=== PATIENT | female | born 1975 | race Caucasian/White ===

== ENCOUNTER 2017-01-30 19:26 | Emergency (ER) | payer OTHER ==
[~2017-01-30] VITALS: Ht 175.3 cm; Wt 133.0 kg
[~2017-01-30 19:26] MED LIST: ALPR1TAB2 PO; BUSP5TAB2 PO; CITA10TA4 PO; OXYC-302 PO; SUMA25TA3 PO; WARF5TAB PO
[2017-01-30 19:27] VITALS: BP 131/87
[2017-01-30] MEDS ORDERED: LIDOCAINE 1%, 20ML ONE (20:11)
[2017-01-30] MEDS ORDERED: DIPH,PERTUSS(ACELL),TET VAC/PF 0.5 ML IM-VACC ONE ×2 (20:11→20:30)
[2017-01-30] MEDS ORDERED: LIDOCAINE 1%, 20ML SQ ONE (20:30)
== END 2017-01-30 20:54 | disposition home or self-care (01) ==
LOC: ED 20:45
DX: S61.217A Laceration without foreign body of left little finger without damage to nail, initial encounter (principal); W26.8XXA Contact with other sharp object(s), not elsewhere classified, initial encounter; Y93.89 Activity, other specified; Y92.009 Unspecified place in unspecified non-institutional (private) residence as the place of occurrence of the external cause; Y99.9 Unspecified external cause status
CPT/HCPCS: 12001; 90471; 90715

== ENCOUNTER → 2017-03-22 | Outpatient (CLI) | payer OTHER ==
[~2017-03-22] MED LIST changes: +OXYC-307 PO
== END | disposition home or self-care (01) ==
LOC: STAR 09:52
PROVIDERS: ATTEND Obstetrics & Gynecology
DX: Z02.9 Encounter for administrative examinations, unspecified (principal)

== ENCOUNTER 2017-03-29 06:05 | Day surgery (SDC) | payer OTHER ==
[~2017-03-29] VITALS: Ht 175.3 cm; Wt 129.7 kg
[2017-03-29] MEDS ORDERED: EPINEPHRINE 1 MG/ML, 1ML ONE (06:15)
[2017-03-29] MEDS ORDERED: BUPIVACAINE/PF 0.25% ONE ×2 (06:15→07:33)
[2017-03-29] MEDS ORDERED: FLUORESCEIN SODIUM 500 MG/5 ML ONE (06:15)
[2017-03-29 07:04] VITALS: BP 137/82
[2017-03-29] MEDS ORDERED: LACTATED RINGERS 1,000 ML IV SCH (07:04)
[2017-03-29] MEDS ORDERED: MIDAZOLAM 1 MG/ML, 2ML ONE ×2 (07:36)
[2017-03-29] MEDS ORDERED: SCOPOLAMINE PATCH, 1.5MG PATCH.TD72 TD ONE ×2 (07:36→07:46)
[2017-03-29] MEDS ORDERED: FENTANYL PF 100 MCG/2ML ONE ×3 (07:36→10:54)
[2017-03-29 07:44] LABS: HCG UR OBC PASS
[2017-03-29] MEDS ORDERED: HYDROmorphone 2 MG/ML, 1ML ONE (07:53)
[2017-03-29] MEDS ORDERED: KETAMINE 10 MG/ML, 20ML ONE (07:54)
[2017-03-29] MEDS ORDERED: KETOROLAC 30 MG/1 ML ONE (07:57)
[2017-03-29] MEDS ORDERED: DEXAMETHASONE 4 MG/ML, 5ML ONE (07:57)
[2017-03-29] MEDS ORDERED: PROPOFOL 10 MG/ML, 20ML ONE (07:57)
[2017-03-29] MEDS ORDERED: LABETALOL 5MG/ML 40ML VIAL ONE (07:57)
[2017-03-29] MEDS ORDERED: CEFOTETAN 2 GM ONE (07:57)
[2017-03-29] MEDS ORDERED: ONDANSETRON 2MG/ML, 2ML ONE ×2 (07:57→16:25)
[2017-03-29] MEDS ORDERED: BUPIVACAINE/PF-EPI 0.25% 1:200K IM ONE (08:25)
[2017-03-29] MEDS ORDERED: HYDROmorphone 1 MG/ML, 1ML IV PRN (09:00)
[2017-03-29] MEDS ORDERED: LORazepam 2 MG/ML, 1ML IVPush PRN (09:00)
[2017-03-29] MEDS ORDERED: OXYcodone 5 MG/5 ML ORAL.SOL UDC PO PRN (09:00)
[2017-03-29] MEDS ORDERED: PROMETHAZINE 25 MG/ML, 1ML IV PRN (09:00)
[2017-03-29] MEDS ORDERED: ACETAMINOPHEN 325 MG TABLET PO PRN (09:00)
[2017-03-29] MEDS ORDERED: ONDANSETRON 2MG/ML, 2ML IVPush PRN ×2 (09:00→16:30)
[2017-03-29] MEDS ORDERED: HYDROmorphone 1 MG/ML, 1ML ONE ×2 (09:32→11:41)
[2017-03-29] MEDS ORDERED: ACETAMINOPHEN 650 MG/20.3 ML UDC ONE (10:55)
[2017-03-29] MEDS ORDERED: MEPERIDINE/PF 25MG/0.5ML ONE (11:06)
[2017-03-29] MEDS: MEPERIDINE/PF 25MG/0.5ML IVPush PRN ×2 (11:07→11:20)
[2017-03-29] MEDS ORDERED: OXYcodone 5 MG/5 ML ORAL.SOL UDC ONE (11:41)
[2017-03-29 14:31] LABS: HEMATOCRIT 33.7 % (34.6-47.8); HEMOGLOBIN 10.9 g/dL (11.7-16.4)
[2017-03-29] MEDS ORDERED: OXYcodone/APAP 5/325MG TABLET ONE (15:34)
[2017-03-29] MEDS ORDERED: ENOXAPARIN 40 MG/0.4 ML ONE (15:43)
[2017-03-29] MEDS ORDERED: ENOXAPARIN 40 MG/0.4 ML SQ SCH (16:00)
[2017-03-29] MEDS ORDERED: OXYcodone/APAP 5/325MG TABLET PO PRN (16:00)
== END 2017-03-29 16:55 ==
LOC: OUT 06:05 → EDSTATUS 08:00 → OUT 16:55
PROVIDERS: ATTEND Obstetrics & Gynecology
DX: N93.8 Other specified abnormal uterine and vaginal bleeding (principal); N85.2 Hypertrophy of uterus; F32.9 Major depressive disorder, single episode, unspecified; G43.909 Migraine, unspecified, not intractable, without status migrainosus; Z86.39 Personal history of other endocrine, nutritional and metabolic disease; Z98.890 Other specified postprocedural states; Z88.0 Allergy status to penicillin; E66.01 Morbid (severe) obesity due to excess calories; Z68.41 Body mass index [BMI] 40.0-44.9, adult
CPT/HCPCS: 36415; 58550; 81025; 85014; 85018; 88307; J0171; J1100; J1170; J1650; J1885; J2175; J2250; J2405; J2704; J3010; J3490; J7120; S0074

== ENCOUNTER 2017-05-16 16:24 | Emergency (ER) | payer OTHER ==
[~2017-05-16] VITALS: Ht 175.3 cm; Wt 127.9 kg
[2017-05-16] MEDS ORDERED: SODIUM CHLORIDE 0.9% 1,000ML IVBOLUS ONE (17:00)
[2017-05-16] MEDS ORDERED: SODIUM CHLORIDE FLUSH 10ML SYR IVF ONE (17:00)
[2017-05-16 17:06] LABS: HEMATOCRIT 37.6 % (34.6-47.8); HEMOGLOBIN 12.2 g/dL (11.7-16.4); WHITE BLOOD COUNT 10.2 x10^3/uL (3.4-10)
[2017-05-16 17:18] LABS: BLOOD UREA NITROGEN 9 mg/dL (7-18)
[2017-05-16] MEDS ORDERED: ONDANSETRON ODT 4 MG PO ONE (19:30)
[2017-05-16] MEDS ORDERED: KETOROLAC 30 MG/1 ML IM ONE (19:30)
[2017-05-16] MEDS ORDERED: HYDROmorphone 1 MG/ML, 1ML IM ONE (19:30)
[2017-05-16 21:11] VITALS: BP 129/69
[2017-05-16] MEDS ORDERED: ONDANSETRON ODT 4 MG ONE (21:27)
[2017-05-16] MEDS ORDERED: HYDROmorphone 1 MG/ML, 1ML ONE (21:28)
[2017-05-16] MEDS ORDERED: KETOROLAC 30 MG/1 ML ONE (21:28)
[2017-05-16] MEDS ORDERED: CEFTRIAXONE 1,000 MG IM ONE (21:30)
[2017-05-16] MEDS ORDERED: CEFTRIAXONE 1,000 MG ONE (21:30)
== END 2017-05-16 22:18 | disposition home or self-care (01) ==
LOC: ED 20:48
DX: N12 Tubulo-interstitial nephritis, not specified as acute or chronic (principal); N39.0 Urinary tract infection, site not specified; G89.29 Other chronic pain; Z88.0 Allergy status to penicillin; Z90.710 Acquired absence of both cervix and uterus
CPT/HCPCS: 36415; 76770; 80048; 81001; 82040; 84703; 85025; 87086; 96360; 96361; 96372; 99285; J0696; J1170; J1885; J7030; Q0162

== ENCOUNTER 2017-06-13 19:01 | Emergency (ER) | payer OTHER ==
[~2017-06-13] VITALS: Ht 175.3 cm; Wt 128.7 kg
[2017-06-13] MEDS ORDERED: MORPHINE SULFATE 4 MG/ML, 1ML IVPush PRN (19:30)
[2017-06-13] MEDS ORDERED: SODIUM CHLORIDE 0.9% 1,000ML IVBOLUS ONE (19:30)
[2017-06-13] MEDS ORDERED: SODIUM CHLORIDE FLUSH 10ML SYR IVF ONE (19:30)
[2017-06-13] MEDS ORDERED: ONDANSETRON 2MG/ML, 2ML IVPush ONE (19:30)
[2017-06-13 19:40] LABS: HEMATOCRIT 36.2 % (34.6-47.8); HEMOGLOBIN 11.8 g/dL (11.7-16.4); WHITE BLOOD COUNT 14.8 x10^3/uL (3.4-10)
[2017-06-13 19:51] LABS: ASPARTATE AMINO TRANSFERASE 10 U/L (15-37); BLOOD UREA NITROGEN 15 mg/dL (7-18)
[2017-06-13] MEDS ORDERED: HYDROmorphone 1 MG/ML, 1ML ONE (22:57)
[2017-06-13] MEDS ORDERED: ONDANSETRON 2MG/ML, 2ML ONE (22:57)
[2017-06-13] MEDS: HYDROmorphone 1 MG/ML, 1ML IVPush PRN (22:59)
[2017-06-13] MEDS ORDERED: OMNIPAQUE 350 MG/ML, 100ML BOTTLE ONE (23:27)
[2017-06-14] MEDS ORDERED: HYDROmorphone 1 MG/ML, 1ML ONE (00:29)
[2017-06-14] MEDS: HYDROmorphone 1 MG/ML, 1ML IVPush PRN (00:33)
[2017-06-14 01:14] VITALS: BP 114/65
== END 2017-06-14 01:20 | disposition home or self-care (01) ==
LOC: ED 22:50
DX: N83.201 Unspecified ovarian cyst, right side (principal); D72.829 Elevated white blood cell count, unspecified; Z90.710 Acquired absence of both cervix and uterus
CPT/HCPCS: 36415; 74177; 76830; 80053; 81001; 83690; 85025; 87086; 96361; 96374; 96375; 96376; 99285; J1170; J2405; J7030; Q9967

== ENCOUNTER 2017-06-14 14:03 | Emergency (ER) | payer OTHER ==
[~2017-06-14] VITALS: Ht 175.3 cm; Wt 127.0 kg
[2017-06-14 14:15] VITALS: BP 125/85
[2017-06-14 15:28] LABS: HEMATOCRIT 35.7 % (34.6-47.8); HEMOGLOBIN 11.5 g/dL (11.7-16.4); WHITE BLOOD COUNT 11.2 x10^3/uL (3.4-10)
[2017-06-14 15:37] LABS: BLOOD UREA NITROGEN 10 mg/dL (7-18)
== END 2017-06-14 17:40 | disposition home or self-care (01) ==
LOC: ED 16:21
DX: N30.00 Acute cystitis without hematuria (principal); Z90.710 Acquired absence of both cervix and uterus
CPT/HCPCS: 36415; 80048; 81001; 82040; 85025; 87086; 99284

== ENCOUNTER 2017-06-28 13:43 | Emergency (ER) | payer OTHER ==
[~2017-06-28] VITALS: Ht 175.3 cm; Wt 130.0 kg
[2017-06-28] MEDS ORDERED: PHENAZOPYRIDINE 200 MG TABLET ONE (14:21)
[2017-06-28] MEDS ORDERED: PHENAZOPYRIDINE 200 MG TABLET PO ONE (14:30)
[2017-06-28 14:54] LABS: HEMOGLOBIN 11.6 g/dL (11.7-16.4); WHITE BLOOD COUNT 9.8 x10^3/uL (3.4-10)
[2017-06-28 15:06] LABS: ASPARTATE AMINO TRANSFERASE 4 U/L (15-37); BLOOD UREA NITROGEN 11 mg/dL (7-18)
[2017-06-28] MEDS ORDERED: HYDROcodone/APAP 5/325 TABLET PO ONE (16:30)
[2017-06-28] MEDS ORDERED: HYDROcodone/APAP 5/325 TABLET ONE (16:45)
[2017-06-28 17:25] VITALS: BP 123/74
== END 2017-06-28 17:28 | disposition home or self-care (01) ==
LOC: ED 14:50
DX: R35.0 Frequency of micturition (principal); R30.0 Dysuria; R39.15 Urgency of urination; M54.5 Low back pain; F32.9 Major depressive disorder, single episode, unspecified; F41.9 Anxiety disorder, unspecified; E66.9 Obesity, unspecified; G89.29 Other chronic pain
CPT/HCPCS: 36415; 80053; 81003; 85025; 87086; 99284

== ENCOUNTER 2017-11-19 20:23 | Emergency (ER) | payer OTHER ==
[~2017-11-19] VITALS: Ht 175.3 cm; Wt 130.0 kg
[2017-11-19 20:55] LABS: BASOPHILS # (AUTO) 0.12 x10^3/uL (0-0.1); BASOPHILS % (AUTO) 1 % (0-1); EOSINOPHILS # (AUTO) 0.24 x10^3/uL (0-0.4); EOSINOPHILS % (AUTO) 2 % (1-7); LYMPHOCYTES # (AUTO) 2.95 x10^3/uL (1-3.4); LYMPHOCYTES % (AUTO) 26 % (22-44); MD NO; MEAN CORPUSCULAR HEMOGLOBIN 24.7 pg (27.0-34.8); MEAN CORPUSCULAR HGB CONC 32.1 g/dL (32.4-35.8); MEAN CORPUSCULAR VOLUME 77.1 fL (80-100); MEAN PLATELET VOLUME 7.4 fL (7.4-10.4); MONOCYTES # (AUTO) 0.53 x10^3/uL (0.2-0.8); MONOCYTES % (AUTO) 5 % (2-9); NEUTROPHILS # (AUTO) 7.44 x10^3/uL (1.8-6.8); NEUTROPHILS % (AUTO) 66 % (42-75); PLATELET COUNT 491 x10^3/uL (130-400); RED BLOOD COUNT 4.71 x10^6/uL (3.82-5.3); RED CELL DISTRIBUTION WIDTH 16.4 % (9.6-15.2)
[2017-11-19] MEDS ORDERED: ONDANSETRON ODT 4 MG PO ONE (21:00)
[2017-11-19] MEDS ORDERED: SODIUM CHLORIDE FLUSH 10ML SYR IVF ONE (21:00)
[2017-11-19] MEDS ORDERED: MORPHINE SULFATE 4 MG/ML, 1ML IVPush PRN (21:00)
[2017-11-19 21:01] LABS: CULTURE INDICATED? YES; MICROSCOPIC INDICATED
[2017-11-19] MEDS ORDERED: ONDANSETRON ODT 4 MG ONE (21:01)
[2017-11-19] MEDS ORDERED: MORPHINE SULFATE 4 MG/ML, 1ML ONE (21:01)
[2017-11-19 21:06] LABS: ALANINE AMINOTRANSFERASE 15 U/L (12-78); ALBUMIN 3.4 g/dL (3.4-5.0); ANION GAP 6 mmol/L (5-15); CALCIUM 8.4 mg/dL (8.5-10.1); CHLORIDE 108 mmol/L (98-107); CREATININE 0.57 mg/dL (0.55-1.02)
[2017-11-19 21:41] LABS: ALKALINE PHOSPHATASE 60 U/L (45-117); BILIRUBIN,TOTAL 0.2 mg/dL (0.2-1.0); TOTAL PROTEIN 7.6 g/dL (6.4-8.2)
[2017-11-19 22:11] LABS: MICROSCOPIC AUTO
[2017-11-19] MEDS ORDERED: NITROFURANTOIN (MACROBID) 100 MG CAPSULE ONE (23:25)
[2017-11-19] MEDS ORDERED: KETOROLAC 30 MG/1 ML ONE (23:25)
[2017-11-19 23:29] VITALS: BP 128/75
[2017-11-19] MEDS ORDERED: KETOROLAC 30 MG/1 ML IVPush ONE (23:30)
[2017-11-19] MEDS ORDERED: NITROFURANTOIN (MACROBID) 100 MG CAPSULE PO ONE (23:30)
== END 2017-11-19 23:56 | disposition home or self-care (01) ==
LOC: ED 21:51
DX: R31.9 Hematuria, unspecified (principal); R10.9 Unspecified abdominal pain; E07.9 Disorder of thyroid, unspecified
CPT/HCPCS: 36415; 74018; 74176; 76770; 80053; 81001; 85025; 87077; 87086; 87186; 96374; 96375; 99285; J1885; Q0162

== ENCOUNTER 2018-02-11 11:57 | Emergency (ER) | payer OTHER ==
[~2018-02-11] VITALS: Ht 175.3 cm; Wt 132.8 kg
[2018-02-11 12:01] VITALS: BP 130/82
[2018-02-11] MEDS ORDERED: SODIUM CHLORIDE FLUSH 10ML SYR IVF ONE (13:00)
[2018-02-11] MEDS ORDERED: MORPHINE SULFATE 4 MG/ML, 1ML ONE ×2 (13:25→15:26)
[2018-02-11] MEDS: MORPHINE SULFATE 4 MG/ML, 1ML IVPush PRN ×2 (13:29→15:30)
[2018-02-11 13:39] LABS: BASOPHILS # (AUTO) 0.04 x10^3/uL (0-0.1); BASOPHILS % (AUTO) 1 % (0-1); EOSINOPHILS # (AUTO) 0.16 x10^3/uL (0-0.4); EOSINOPHILS % (AUTO) 2 % (1-7); LYMPHOCYTES # (AUTO) 2.43 x10^3/uL (1-3.4); LYMPHOCYTES % (AUTO) 27 % (22-44); MD NO; MEAN CORPUSCULAR HEMOGLOBIN 24.6 pg (27.0-34.8); MEAN CORPUSCULAR HGB CONC 32.1 g/dL (32.4-35.8); MEAN CORPUSCULAR VOLUME 76.6 fL (80-100); MEAN PLATELET VOLUME 7.3 fL (7.4-10.4); MONOCYTES # (AUTO) 0.31 x10^3/uL (0.2-0.8); MONOCYTES % (AUTO) 4 % (2-9); NEUTROPHILS % (AUTO) 68 % (42-75); PLATELET COUNT 469 x10^3/uL (130-400); RED BLOOD COUNT 4.93 x10^6/uL (3.82-5.3); RED CELL DISTRIBUTION WIDTH 16.1 % (9.6-15.2)
[2018-02-11 13:43] LABS: ALBUMIN 3.2 g/dL (3.4-5.0); ANION GAP 4 mmol/L (5-15); CALCIUM 8.7 mg/dL (8.5-10.1); CHLORIDE 104 mmol/L (98-107); CREATININE 0.55 mg/dL (0.55-1.02)
[2018-02-11] MEDS ORDERED: OMNIPAQUE 350 MG/ML, 100ML BOTTLE ONE (14:52)
== END 2018-02-11 16:26 | disposition home or self-care (01) ==
LOC: ED 14:19
DX: R10.31 Right lower quadrant pain (principal); E07.9 Disorder of thyroid, unspecified; F32.9 Major depressive disorder, single episode, unspecified; Z90.710 Acquired absence of both cervix and uterus
CPT/HCPCS: 36415; 74177; 80048; 82040; 83605; 85025; 96374; 96376; 99285; Q9967

== ENCOUNTER → 2018-02-21 | Outpatient (CLI) | payer OTHER ==
[~2018-02-21] MED LIST changes: +BUSP10TA PO; +DEXAMETHASONE 4 MG/ML, 1ML ONE; +FENTANYL PF 250 MCG/5ML ONE; +LIDOCAINE GEL 2%, 5ML ONE; +MIDAZOLAM 1 MG/ML, 2ML ONE; +MULT-516 PO; +ONDANSETRON 2MG/ML, 2ML ONE; +PROPOFOL 10 MG/ML, 20ML ONE; +ROCURONIUM 10MG/ML,5ML ONE; +SUCCINYLCHOLINE 20 MG/ML, 10ML ONE
== END | disposition home or self-care (01) ==
LOC: STAR 10:20
PROVIDERS: ATTEND Obstetrics & Gynecology
DX: Z02.9 Encounter for administrative examinations, unspecified (principal)

== ENCOUNTER 2018-02-27 12:28 | Day surgery (SDC) | payer OTHER ==
[~2018-02-27] VITALS: Ht 175.3 cm; Wt 133.5 kg
[~2018-02-27 12:28] MED LIST changes: -DEXAMETHASONE 4 MG/ML, 1ML ONE; -FENTANYL PF 250 MCG/5ML ONE; -LIDOCAINE GEL 2%, 5ML ONE; -MIDAZOLAM 1 MG/ML, 2ML ONE; -ONDANSETRON 2MG/ML, 2ML ONE; -PROPOFOL 10 MG/ML, 20ML ONE; -ROCURONIUM 10MG/ML,5ML ONE; -SUCCINYLCHOLINE 20 MG/ML, 10ML ONE
[2018-02-27] MEDS ORDERED: LACTATED RINGERS 1,000 ML IV SCH ×2 (13:53→14:05)
[2018-02-27 14:09] VITALS: BP 143/100
[2018-02-27] MEDS ORDERED: OXYTOCIN 10 UNITS/ML, 1ML ONE (14:42)
[2018-02-27] MEDS ORDERED: BUPIVACAINE 0.25% ONE (14:42)
[2018-02-27] MEDS ORDERED: EPINEPHRINE 1 MG/ML, 1ML ONE (14:42)
[2018-02-27] MEDS ORDERED: ACETAMINOPHEN 500 MG TABLET ONE (15:21)
[2018-02-27] MEDS: ACETAMINOPHEN 500 MG TABLET PO ONE ×2 (15:21→15:24)
[2018-02-27] MEDS ORDERED: ONDANSETRON 2MG/ML, 2ML ONE (15:23)
[2018-02-27] MEDS ORDERED: ROCURONIUM 10 MG/ML,10ML ONE (15:23)
[2018-02-27] MEDS ORDERED: PROPOFOL 10 MG/ML, 20ML ONE (15:23)
[2018-02-27] MEDS ORDERED: KETOROLAC 30 MG/1 ML ONE (15:23)
[2018-02-27] MEDS ORDERED: DEXAMETHASONE 4 MG/ML, 1ML ONE (15:23)
[2018-02-27] MEDS ORDERED: NEOSTIGMINE 1 MG/ML, 10ML ONE (15:23)
[2018-02-27] MEDS ORDERED: SUCCINYLCHOLINE 20 MG/ML, 10ML ONE (15:23)
[2018-02-27] MEDS ORDERED: CEFAZOLIN 1,000 MG ONE (15:23)
[2018-02-27] MEDS ORDERED: MEPERIDINE/PF 25MG/0.5ML IVPush PRN (15:30)
[2018-02-27] MEDS ORDERED: ALBUTEROL SULFATE 2.5 MG/3 ML NPPB PRN (15:30)
[2018-02-27] MEDS ORDERED: LABETALOL 5MG/ML, 20ML IV PRN (15:30)
[2018-02-27] MEDS ORDERED: FENTANYL PF 100 MCG/2ML IV PRN (15:30)
[2018-02-27] MEDS ORDERED: PROMETHAZINE 25 MG/ML, 1ML IV PRN (15:30)
[2018-02-27] MEDS ORDERED: ONDANSETRON ODT 8 MG PO ONE (15:30)
[2018-02-27] MEDS ORDERED: ONDANSETRON ODT 8 MG PO PRN (15:30)
[2018-02-27] MEDS ORDERED: PROMETHAZINE 12.5 MG SUPP PR PRN (15:30)
[2018-02-27] MEDS ORDERED: SCOPOLAMINE PATCH, 1.5MG PATCH.TD72 TD ONE (15:30)
[2018-02-27] MEDS ORDERED: MIDAZOLAM 1 MG/ML, 2ML IV PRN (15:30)
[2018-02-27] MEDS ORDERED: ONDANSETRON 2MG/ML, 2ML IV PRN ×2 (15:30→19:30)
[2018-02-27] MEDS ORDERED: OXYcodone 5 MG/5 ML ORAL.SOL UDC PO PRN (15:30)
[2018-02-27] MEDS ORDERED: hydrALAzine 20 MG/ML, 1ML IV PRN (15:30)
[2018-02-27] MEDS ORDERED: FLUORESCEIN SODIUM 500 MG/5 ML ONE (16:44)
[2018-02-27] MEDS ORDERED: FENTANYL PF 100 MCG/2ML ONE (17:07)
[2018-02-27] MEDS ORDERED: OXYcodone 5 MG/5 ML ORAL.SOL UDC ONE (17:08)
[2018-02-27] MEDS ORDERED: HYDROmorphone 2 MG/ML, 1ML ONE (17:22)
[2018-02-27] MEDS: HYDROmorphone 1 MG/ML, 1ML IV PRN ×2 (17:25→17:30)
[2018-02-27] MEDS ORDERED: KETOROLAC 30 MG/1 ML IV PRN (19:30)
[2018-02-27] MEDS ORDERED: OXYcodone/APAP 5/325MG TABLET PO PRN (19:30)
[2018-02-27] MEDS ORDERED: morphine SULFATE 10 MG/ML, 1ML IV PRN (19:30)
[2018-02-27] MEDS ORDERED: IBUPROFEN 600 MG TABLET PO SCH (21:00)
== END 2018-02-27 22:35 | disposition home or self-care (01) ==
LOC: OUT 12:28 → 4NOR 18:26 → OUT 22:35
PROVIDERS: ATTEND Obstetrics & Gynecology
DX: N83.202 Unspecified ovarian cyst, left side (principal); N94.10 Unspecified dyspareunia; N73.6 Female pelvic peritoneal adhesions (postinfective); Z79.899 Other long term (current) drug therapy; Z98.890 Other specified postprocedural states; G43.909 Migraine, unspecified, not intractable, without status migrainosus; Z90.710 Acquired absence of both cervix and uterus; Z86.39 Personal history of other endocrine, nutritional and metabolic disease
CPT/HCPCS: 58662; 88305; J0171; J0330; J0690; J1100; J1170; J1885; J2250; J2270; J2405; J2704; J2710; J3010; J3490; J7120; Q0162; J2590

== ENCOUNTER 2018-03-29 15:39 | Emergency (ER) | payer OTHER ==
[~2018-03-29] VITALS: Ht 175.3 cm; Wt 128.0 kg
[~2018-03-29 15:39] MED LIST changes: +BUSP7.5T3 PO
[2018-03-29 15:46] VITALS: BP 129/71
[2018-03-29] MEDS ORDERED: METH500T97 PO (15:53)
== END 2018-03-29 17:26 | disposition home or self-care (01) ==
LOC: ED 16:24
DX: S16.1XXA Strain of muscle, fascia and tendon at neck level, initial encounter (principal); S39.012A Strain of muscle, fascia and tendon of lower back, initial encounter; F32.9 Major depressive disorder, single episode, unspecified; G89.29 Other chronic pain; F41.1 Generalized anxiety disorder; Z86.39 Personal history of other endocrine, nutritional and metabolic disease; W18.30XA Fall on same level, unspecified, initial encounter; Y93.89 Activity, other specified; Y92.009 Unspecified place in unspecified non-institutional (private) residence as the place of occurrence of the external cause; Y99.8 Other external cause status
CPT/HCPCS: 72110; 72125; 99284

== ENCOUNTER 2018-04-21 18:31 | Emergency (ER) | payer SELFPAY ==
[~2018-04-21] VITALS: Ht 175.3 cm; Wt 130.0 kg
[~2018-04-21 18:31] MED LIST changes: +METH500T97 PO
[2018-04-21] MEDS ORDERED: PLEASE ENTER HEIGHT AND WEIGHT MC SCH (19:00)
[2018-04-21 19:20] VITALS: BP 121/64
== END 2018-04-21 20:16 | disposition home or self-care (01) ==
LOC: ED 19:00
DX: M62.830 Muscle spasm of back (principal); G89.29 Other chronic pain; F32.9 Major depressive disorder, single episode, unspecified; F41.1 Generalized anxiety disorder
CPT/HCPCS: 99283

== ENCOUNTER → 2018-06-21 | Outpatient (CLI) | payer OTHER | END | disposition home or self-care (01) | LOC: RAD 08:35 | PROVIDERS: ATTEND Neurological Surgery | DX: M51.16 Intervertebral disc disorders with radiculopathy, lumbar region (principal); M25.78 Osteophyte, vertebrae | CPT/HCPCS: 72120; 72148 ==

== ENCOUNTER 2018-09-06 10:11 | Emergency (ER) | payer OTHER ==
[~2018-09-06] VITALS: Ht 175.3 cm; Wt 131.6 kg
--- NOTE | 2018-09-06 10:24 | NUR ---
43 YR OLD FEMALE ARRIVED VIA EMS WITH C/O "DRAINAGE FROM INCISION SITE S/P HERNIA REPAIR. PT WITH YELLOW DRAINAGE FROM INCISION LINE. STERI STRIPS IN PLACE.
[2018-09-06] MEDS ORDERED: TRAM50TA2 PO (10:31)
[2018-09-06] MEDS ORDERED: CEFAZOLIN PMX 1GM/50ML 50 ML IVPB ONE (11:00)
[2018-09-06] MEDS ORDERED: MORPHINE SULFATE 4 MG/ML, 1ML IVPush PRN (11:00)
[2018-09-06] MEDS ORDERED: ONDANSETRON 2MG/ML, 2ML IVPush ONE (11:00)
[2018-09-06] MEDS ORDERED: SODIUM CHLORIDE FLUSH 10ML SYR IVF ONE (11:00)
[2018-09-06 11:04] LABS: BASOPHILS # (AUTO) 0.01 x10^3/uL (0-0.1); BASOPHILS % (AUTO) 0 % (0-1); EOSINOPHILS # (AUTO) 0.27 x10^3/uL (0-0.4); EOSINOPHILS % (AUTO) 3 % (1-7); LYMPHOCYTES # (AUTO) 1.77 x10^3/uL (1-3.4); LYMPHOCYTES % (AUTO) 19 % (22-44); MD NO; MEAN CORPUSCULAR HGB CONC 32.7 g/dL (32.4-35.8); MEAN CORPUSCULAR VOLUME 76.5 fL (80-100); MEAN PLATELET VOLUME 6.9 fL (7.4-10.4); MONOCYTES # (AUTO) 0.36 x10^3/uL (0.2-0.8); MONOCYTES % (AUTO) 4 % (2-9); NEUTROPHILS # (AUTO) 7.11 x10^3/uL (1.8-6.8); NEUTROPHILS % (AUTO) 75 % (42-75); PLATELET COUNT 520 x10^3/uL (130-400); RED BLOOD COUNT 4.91 x10^6/uL (3.82-5.3); RED CELL DISTRIBUTION WIDTH 15.2 % (9.6-15.2)
[2018-09-06] MEDS ORDERED: ONDANSETRON 2MG/ML, 2ML ONE (11:09)
[2018-09-06] MEDS ORDERED: CEFAZOLIN PMX 1GM/50ML 50 ML ONE (11:09)
[2018-09-06] MEDS ORDERED: MORPHINE SULFATE 4 MG/ML, 1ML ONE (11:09)
[2018-09-06 11:15] LABS: ALANINE AMINOTRANSFERASE 18 U/L (12-78); ALBUMIN 2.8 g/dL (3.4-5.0); ANION GAP 5 mmol/L (5-15); CALCIUM 8.2 mg/dL (8.5-10.1); CHLORIDE 102 mmol/L (98-107); CREATININE 0.56 mg/dL (0.55-1.02)
[2018-09-06 11:17] LABS: ALKALINE PHOSPHATASE 67 U/L (45-117); BILIRUBIN,TOTAL 0.2 mg/dL (0.2-1.0); TOTAL PROTEIN 7.2 g/dL (6.4-8.2)
[2018-09-06] MEDS ORDERED: OMNIPAQUE 350 MG/ML, 100ML BOTTLE ONE (11:42)
--- NOTE | 2018-09-06 12:15 | NUR ---
PT LAYING ON DOLLY LICONA UP. PT WITH PAIN 8-03/27, "I WENT TO THE BR AND IT INCREASED WITH MOVING AROUND. PT WITH QUESTIONS ABOUT "WHAT HAPPENS NEXT" DISCUSSED WAITING FOR TEST RESULTS, MD REVIEW AND A DECISION ON ADMIT VS DC WOULD BE MADE. MD WILL RETURN AFTER TESTS COMPLETED TO REVIEW WITH PT. UNDERSTANDING VERBALIZED. PT ASKING ABOUT ADDITIONAL PAIN MEDS.
[2018-09-06 12:17] VITALS: BP 134/53
--- NOTE | 2018-09-06 12:17 | NUR ---
DR PEREZ AT BEDSIDE TO EVAL PT.
--- NOTE | 2018-09-06 12:38 | NUR ---
Patient/Caregiver given discharge instructions and they have confirmed that they understand the instructions. Patient ambulatory with steady gait.
== END 2018-09-06 12:39 | disposition home or self-care (01) ==
LOC: ED 10:51
DX: R10.13 Epigastric pain (principal); Z90.710 Acquired absence of both cervix and uterus; F32.9 Major depressive disorder, single episode, unspecified; M54.9 Dorsalgia, unspecified; G89.29 Other chronic pain
CPT/HCPCS: 36415; 74177; 80053; 83690; 85025; 87070; 87205; 96365; 96375; 99284; J0690; J2405; Q9967

== ENCOUNTER 2018-09-09 20:21 | Inpatient (IN) | payer OTHER ==
[~2018-09-09] VITALS: Ht 175.3 cm; Wt 137.8 kg
[~2018-09-09 20:21] MED LIST changes: +TRAM50TA2 PO
[2018-09-09] MEDS ORDERED: ACETAMINOPHEN 500 MG TABLET ONE (21:00)
--- NOTE | 2018-09-09 21:13 | NUR ---
pt medicated for temp
[2018-09-09] MEDS ORDERED: SODIUM CHLORIDE FLUSH 10ML SYR IVF ONE (21:30)
[2018-09-09] MEDS ORDERED: SODIUM CHLORIDE 0.9% 1,000ML IVBOLUS ONE (21:30)
[2018-09-09] MEDS ORDERED: CEFTRIAXONE PMX 1GM/50ML 50 ML IVPB ONE (21:30)
[2018-09-09] MEDS ORDERED: METRONIDAZOLE PMX 500MG/100ML 100 ML IVPB ONE (21:30)
[2018-09-09] MEDS ORDERED: CEFTRIAXONE 1,000 MG in SODIUM CHLORIDE 0.9% 50 ML IVPB ONE (21:30)
[2018-09-09] MEDS ORDERED: ACETAMINOPHEN 500 MG TABLET PO ONE (21:30)
[2018-09-09] MEDS ORDERED: ACETAMINOPHEN 325 MG TABLET PO ONE (21:30)
[2018-09-09] MEDS ORDERED: CEFTRIAXONE PMX 1GM/50ML 50 ML ONE (21:34)
[2018-09-09 21:44] LABS: BASOPHILS % (AUTO) 0 % (0-1); EOSINOPHILS # (AUTO) 0.16 x10^3/uL (0-0.4); EOSINOPHILS % (AUTO) 2 % (1-7); LYMPHOCYTES # (AUTO) 0.37 x10^3/uL (1-3.4); LYMPHOCYTES % (AUTO) 6 % (22-44); MD NO; MEAN CORPUSCULAR HEMOGLOBIN 24.9 pg (27.0-34.8); MEAN CORPUSCULAR VOLUME 75.5 fL (80-100); MONOCYTES % (AUTO) 3 % (2-9); NEUTROPHILS % (AUTO) 89 % (42-75); PLATELET COUNT 431 x10^3/uL (130-400); RED BLOOD COUNT 5.23 x10^6/uL (3.82-5.3); RED CELL DISTRIBUTION WIDTH 14.9 % (9.6-15.2)
[2018-09-09 21:51] LABS: INTERNATIONAL NORMALIZED RATIO 1.05 (0.93-1.1)
[2018-09-09 21:56] LABS: ALANINE AMINOTRANSFERASE 14 U/L (12-78); ALBUMIN 3.4 g/dL (3.4-5.0); ANION GAP 8 mmol/L (5-15); CALCIUM 8.4 mg/dL (8.5-10.1); CHLORIDE 99 mmol/L (98-107); CREATININE 0.74 mg/dL (0.55-1.02)
[2018-09-09 21:58] LABS: ALKALINE PHOSPHATASE 72 U/L (45-117); BILIRUBIN,TOTAL 0.2 mg/dL (0.2-1.0); TOTAL PROTEIN 8.1 g/dL (6.4-8.2)
[2018-09-09] MEDS ORDERED: METRONIDAZOLE PMX 500MG/100ML 100 ML ONE (23:01)
--- NOTE | 2018-09-09 23:39 | NUR ---
REPORT GIVEN TO RICHARD SOTO
[2018-09-10] MEDS ORDERED: hydrALAzine 20 MG/ML, 1ML IVPush PRN
[2018-09-10] MEDS ORDERED: CEFTRIAXONE PMX 1GM/50ML 50 ML IV ONE
[2018-09-10] MEDS ORDERED: ONDANSETRON ODT 4 MG PO PRN
[2018-09-10] MEDS ORDERED: ACETAMINOPHEN 325 MG TABLET PO PRN
[2018-09-10] MEDS ORDERED: VANCOMYCIN PMX 1GM/200ML 200 ML IV ONE
[2018-09-10] MEDS ORDERED: ONDANSETRON 2MG/ML, 2ML IVPush PRN
[2018-09-10] MEDS ORDERED: PROMETHAZINE 25 MG/ML, 1ML IM PRN
[2018-09-10] MEDS ORDERED: DOCUSATE 100 MG CAPSULE PO PRN
[2018-09-10] MEDS ORDERED: GABAPENTIN 300 MG CAPSULE PO PRN
[2018-09-10] MEDS ORDERED: POLYETHYLENE GLYCOL 17 GM PACKET PO PRN
[2018-09-10] MEDS ORDERED: VANCOMYCIN PER PHARMACY MC PRN
[2018-09-10] MEDS ORDERED: LABETALOL 5 MG/ML SYRINGE IVPush PRN
[2018-09-10] MEDS ORDERED: BISACODYL 10 MG SUPP PR PRN
[2018-09-10 00:02] VITALS: BP 139/86
[2018-09-10] MEDS: D5%-0.9% NACL 1,000 ML IV SCH ×2 (00:02→14:30)
[2018-09-10 00:13] LABS: FREE T4 (FREE THYROXINE) 1.02 ng/dL (0.76-1.46); THYROID STIMULATING HORMONE 1.62 mIU/L (0.358-3.740)
[2018-09-10 00:23] LABS: HEMOGLOBIN A1C 5.9 % (4.2-6.3)
[2018-09-10] MEDS ORDERED: VANCOMYCIN 2,000 MG in SODIUM CHLORIDE 0.9% 500 ML IV ONE (00:30)
[2018-09-10] MEDS: morphine SULFATE 10 MG/ML, 1ML IVPush PRN ×7 (00:47→23:43)
[2018-09-10] MEDS: ALPRazolam 1MG TABLET PO SCH ×3 (00:47→23:42)
[2018-09-10 01:17] LABS: MICROSCOPIC NOT IND
[2018-09-10 01:19] LABS: CULTURE INDICATED? NO
[2018-09-10 03:17] VITALS: BP 139/76
[2018-09-10 05:03] LABS: BASOPHILS # (AUTO) 0.01 x10^3/uL (0-0.1); BASOPHILS % (AUTO) 0 % (0-1); EOSINOPHILS # (AUTO) 0.09 x10^3/uL (0-0.4); EOSINOPHILS % (AUTO) 2 % (1-7); LYMPHOCYTES # (AUTO) 0.37 x10^3/uL (1-3.4); LYMPHOCYTES % (AUTO) 8 % (22-44); MD NO; MEAN CORPUSCULAR HEMOGLOBIN 24.9 pg (27.0-34.8); MEAN CORPUSCULAR VOLUME 75.5 fL (80-100); MEAN PLATELET VOLUME 7.1 fL (7.4-10.4); MONOCYTES # (AUTO) 0.24 x10^3/uL (0.2-0.8); MONOCYTES % (AUTO) 5 % (2-9); NEUTROPHILS # (AUTO) 3.86 x10^3/uL (1.8-6.8); NEUTROPHILS % (AUTO) 85 % (42-75); PLATELET COUNT 374 x10^3/uL (130-400); RED BLOOD COUNT 4.54 x10^6/uL (3.82-5.3); RED CELL DISTRIBUTION WIDTH 15.2 % (9.6-15.2)
[2018-09-10 05:20] LABS: ALBUMIN 2.8 g/dL (3.4-5.0); ANION GAP 5 mmol/L (5-15); CALCIUM 7.6 mg/dL (8.5-10.1); CHLORIDE 105 mmol/L (98-107)
[2018-09-10 05:24] LABS: ALANINE AMINOTRANSFERASE 12 U/L (12-78); ALKALINE PHOSPHATASE 59 U/L (45-117); BILIRUBIN,TOTAL 0.2 mg/dL (0.2-1.0); CHOLESTEROL, TOTAL 151 mg/dL (140-239); CREATININE 0.66 mg/dL (0.55-1.02); HDL CHOL % 20 % (28-40); HDL CHOLESTEROL (DIRECT) 30 mg/dL (40-60); LDL CHOLESTEROL,CALCULATED 103 mg/dL (54-169); LDL/HDL RATIO 3.4 (0.5-3.0); TOTAL PROTEIN 6.6 g/dL (6.4-8.2); TRIGLYCERIDES 91 mg/dL (50-200); VLDL CHOLESTEROL 18 mg/dL (0-25)
[2018-09-10] MEDS: METRONIDAZOLE PMX 500MG/100ML 100 ML IV SCH ×2 (07:55→14:29)
[2018-09-10 09:22] VITALS: BP 114/71
[2018-09-10] MEDS: VANCOMYCIN 2,500 MG in SODIUM CHLORIDE 0.9% 500 ML IV SCH ×2 (09:38→21:43)
[2018-09-10] MEDS: CITALOPRAM 20 MG TABLET PO SCH (09:38)
[2018-09-10] MEDS ORDERED: PHARMACOKINETIC CONSULTATION MC ONE (12:00)
[2018-09-10] MEDS ORDERED: PHARMACOKINETIC MONITORING MC PRN (12:00)
[2018-09-10 14:33] VITALS: BP 104/78
[2018-09-10 19:11] VITALS: BP 118/87
[2018-09-10] MEDS ORDERED: MORPHINE SULFATE 4 MG/ML, 1ML ONE (19:21)
[2018-09-10] MEDS: CEFTRIAXONE PMX 2GM/50ML 50 ML IV SCH (23:43)
[2018-09-11] MEDS: METRONIDAZOLE PMX 500MG/100ML 100 ML IV SCH ×4 (00:28→23:57)
[2018-09-11 00:42] VITALS: BP 102/72
[2018-09-11] MEDS: morphine SULFATE 10 MG/ML, 1ML IVPush PRN ×3 (03:33→12:54)
[2018-09-11] MEDS: D5%-0.9% NACL 1,000 ML IV SCH (03:34)
[2018-09-11 05:22] LABS: BASOPHILS # (AUTO) 0.02 x10^3/uL (0-0.1); BASOPHILS % (AUTO) 1 % (0-1); EOSINOPHILS % (AUTO) 5 % (1-7); LYMPHOCYTES # (AUTO) 0.86 x10^3/uL (1-3.4); LYMPHOCYTES % (AUTO) 23 % (22-44); MD NO; MEAN CORPUSCULAR HEMOGLOBIN 25.1 pg (27.0-34.8); MEAN CORPUSCULAR HGB CONC 32.8 g/dL (32.4-35.8); MEAN CORPUSCULAR VOLUME 76.5 fL (80-100); MEAN PLATELET VOLUME 7.3 fL (7.4-10.4); MONOCYTES # (AUTO) 0.33 x10^3/uL (0.2-0.8); MONOCYTES % (AUTO) 9 % (2-9); NEUTROPHILS # (AUTO) 2.36 x10^3/uL (1.8-6.8); NEUTROPHILS % (AUTO) 63 % (42-75); PLATELET COUNT 319 x10^3/uL (130-400); RED BLOOD COUNT 4.35 x10^6/uL (3.82-5.3); RED CELL DISTRIBUTION WIDTH 15.9 % (9.6-15.2)
[2018-09-11 05:24] LABS: CHLORIDE 105 mmol/L (98-107)
[2018-09-11 05:34] LABS: % IRON SATURATION 10 % (20-55); ANION GAP 6 mmol/L (5-15); CALCIUM 7.1 mg/dL (8.5-10.1); CREATININE 0.47 mg/dL (0.55-1.02); IRON LEVEL 23 mcg/dL (50-170); TOTAL IRON BINDING CAPACITY 239 mcg/dL (250-450); TRANSFERRIN 186 mg/dL (200-360)
[2018-09-11 06:49] VITALS: BP 113/81
[2018-09-11] MEDS: CITALOPRAM 20 MG TABLET PO SCH (07:51)
[2018-09-11] MEDS: ALPRazolam 1MG TABLET PO SCH ×2 (07:51→23:05)
[2018-09-11] MEDS: VANCOMYCIN 2,500 MG in SODIUM CHLORIDE 0.9% 500 ML IV SCH (10:06)
[2018-09-11 12:58] VITALS: BP 119/79
[2018-09-11] MEDS ORDERED: LIDOCAINE-MPF 1%, 5ML ONE (16:09)
[2018-09-11] MEDS ORDERED: MIDAZOLAM 1 MG/ML, 5ML ONE (16:20)
[2018-09-11] MEDS: OXYcodone IR 5MG TABLET PO PRN ×2 (17:07→23:05)
[2018-09-11 20:02] VITALS: BP 103/59
[2018-09-11] MEDS: CEFTRIAXONE PMX 2GM/50ML 50 ML IV SCH (23:03)
[2018-09-11 23:24] VITALS: BP 125/57
[2018-09-12 05:01] LABS: BASOPHILS # (AUTO) 0.03 x10^3/uL (0-0.1); BASOPHILS % (AUTO) 1 % (0-1); EOSINOPHILS # (AUTO) 0.25 x10^3/uL (0-0.4); EOSINOPHILS % (AUTO) 5 % (1-7); LYMPHOCYTES # (AUTO) 1.92 x10^3/uL (1-3.4); LYMPHOCYTES % (AUTO) 37 % (22-44); MD NO; MEAN CORPUSCULAR HEMOGLOBIN 25.2 pg (27.0-34.8); MEAN CORPUSCULAR HGB CONC 33.2 g/dL (32.4-35.8); MONOCYTES # (AUTO) 0.48 x10^3/uL (0.2-0.8); MONOCYTES % (AUTO) 9 % (2-9); NEUTROPHILS # (AUTO) 2.47 x10^3/uL (1.8-6.8); NEUTROPHILS % (AUTO) 48 % (42-75); PLATELET COUNT 346 x10^3/uL (130-400); RED BLOOD COUNT 4.32 x10^6/uL (3.82-5.3); RED CELL DISTRIBUTION WIDTH 15.4 % (9.6-15.2)
[2018-09-12 05:09] LABS: ANION GAP 4 mmol/L (5-15); CALCIUM 7.6 mg/dL (8.5-10.1); CHLORIDE 103 mmol/L (98-107); CREATININE 0.53 mg/dL (0.55-1.02)
[2018-09-12] MEDS ORDERED: POTASSIUM CHLORIDE 20 MEQ TAB.ER.PRT PO ONE (07:00)
[2018-09-12 07:35] VITALS: BP 129/69
[2018-09-12] MEDS: METRONIDAZOLE PMX 500MG/100ML 100 ML IV SCH ×2 (07:54→15:01)
[2018-09-12] MEDS: OXYcodone IR 5MG TABLET PO PRN ×2 (07:59→13:17)
[2018-09-12] MEDS: CITALOPRAM 20 MG TABLET PO SCH (08:49)
[2018-09-12] MEDS: ALPRazolam 1MG TABLET PO SCH (08:49)
[2018-09-12 12:38] VITALS: BP 108/73
[2018-09-12] MEDS ORDERED: LEVO750T6 PO (13:36)
[2018-09-12] MEDS ORDERED: METR-90 PO (13:36)
== END 2018-09-12 17:05 | disposition home or self-care (01) | DRG 919 ==
LOC: ED 21:44 → EDIP 23:06 → 3NW 23:48 → 4NOR 09-10 13:40 → DCLOUNGE 09-12 16:51
PROVIDERS: ADMIT Internal Medicine; ATTEND Internal Medicine
PROC: 0W9F3ZZ Drainage of Abdominal Wall, Percutaneous Approach (ICD-10-PCS; principal; 2018-09-11)
DX: L76.32 Postprocedural hematoma of skin and subcutaneous tissue following other procedure (principal); R65.11 Systemic inflammatory response syndrome (SIRS) of non-infectious origin with acute organ dysfunction; E87.1 Hypo-osmolality and hyponatremia; R18.8 Other ascites; L03.90 Cellulitis, unspecified; Y83.9 Surgical procedure, unspecified as the cause of abnormal reaction of the patient, or of later complication, without mention of misadventure at the time of the procedure; Z88.0 Allergy status to penicillin; Z88.8 Allergy status to other drugs, medicaments and biological substances; D50.9 Iron deficiency anemia, unspecified; F32.9 Major depressive disorder, single episode, unspecified; F41.9 Anxiety disorder, unspecified; G89.18 Other acute postprocedural pain; Z90.710 Acquired absence of both cervix and uterus; S30.1XXA Contusion of abdominal wall, initial encounter; X58.XXXA Exposure to other specified factors, initial encounter; Y93.89 Activity, other specified; Y92.89 Other specified places as the place of occurrence of the external cause; Y99.8 Other external cause status; Y83.8 Other surgical procedures as the cause of abnormal reaction of the patient, or of later complication, without mention of misadventure at the time of the procedure
CPT/HCPCS: 10030; 36415; 99285; J7042; 76705; 80048; 80053; 80061; 81003; 82728; 83036; 83540; 83550; 83605; 83735; 84439; 84443; 84466; 85025; 85610; 87040; 87070; 87075; 87205; 96374; 96375; 99156; 99157; G0378; J0696; J2250; J3370; J2270; J7030; J7040

== ENCOUNTER 2018-12-18 13:36 | Emergency (ER) | payer OTHER ==
[~2018-12-18] VITALS: Ht 175.3 cm; Wt 136.4 kg
[~2018-12-18 13:36] MED LIST changes: +LEVO750T6 PO; +METR-90 PO
[2018-12-18] MEDS ORDERED: SODIUM CHLORIDE FLUSH 10ML SYR IVF ONE (14:30)
[2018-12-18] MEDS ORDERED: KETOROLAC 30 MG/1 ML IVPush ONE (14:30)
[2018-12-18] MEDS ORDERED: PROCHLORPERAZINE 5 MG/ML, 2ML IVPush ONE (14:30)
[2018-12-18] MEDS ORDERED: DIPHENHYDRAMINE 50 MG/ML, 1ML IVPush ONE (14:30)
--- NOTE | 2018-12-18 14:31 | NUR ---
FROM LOBBY TO ROOM AT THIS TIME
--- NOTE | 2018-12-18 14:40 | NUR ---
pt to ed for zhao and associated n/v since 0800 this morning. pt connected to monitors. htn, 183/102. all other vss on ra. pit orders received. awaiting edmd assessment.
[2018-12-18] MEDS ORDERED: KETOROLAC 30 MG/1 ML ONE (14:50)
[2018-12-18] MEDS ORDERED: PROCHLORPERAZINE 5 MG/ML, 2ML ONE (14:50)
[2018-12-18] MEDS ORDERED: DIPHENHYDRAMINE 50 MG/ML, 1ML ONE (15:32)
[2018-12-18 15:43] VITALS: BP 171/99
--- NOTE | 2018-12-18 16:07 | NUR ---
pt medicated per sep. no needs expressed. vss. awaiting further orders.
== END 2018-12-18 17:08 | disposition home or self-care (01) ==
LOC: ED 16:18
DX: G43.909 Migraine, unspecified, not intractable, without status migrainosus (principal); F32.9 Major depressive disorder, single episode, unspecified; F41.1 Generalized anxiety disorder; G89.29 Other chronic pain
CPT/HCPCS: 96374; 96375; 99283; J0780; J1200; J1885

== ENCOUNTER 2020-10-02 14:59 | Emergency (ER) | payer OTHER ==
[~2020-10-02] VITALS: Ht 175.3 cm; Wt 120.0 kg
[~2020-10-02 14:59] MED LIST changes: -BUSP7.5T3 PO; +BUSP7.5T5 PO; -OXYC-302 PO; -OXYC-307 PO; +OXYC-380 PO; +OXYC1TAB14 PO; -WARF5TAB PO; +WARF5TAB2 PO
--- NOTE | 2020-10-02 15:07 | NUR ---
JOSE CC OF BACK L4 BACK PAIN 03/27 SINCE YESTERDAY AM. PT STATES IN 2012 SHE HAD SURGERY IN THAT AREA FOR DDD AND HASN'T HAD ANY PROBLEMS UNTIL YESTERDAY. PT STATES SHE HAS TRIED HOT AND COLD COMPRESS, TYLENOL, AND IBUPROFEN WITH NO RELIEF. PT ABLE TO TRANSFER FROM [facility] TO [facility].
[2020-10-02] MEDS ORDERED: METHOCARBAMOL 750 MG TABLET ONE (15:25)
[2020-10-02] MEDS ORDERED: HYDROmorphone 1 MG/ML, 1ML INJ ONE (15:26)
[2020-10-02] MEDS ORDERED: HYDROmorphone 1 MG/ML, 1ML INJ IM ONE (15:30)
[2020-10-02] MEDS ORDERED: METHOCARBAMOL 750 MG TABLET PO ONE (15:30)
[2020-10-02 16:02] VITALS: BP 118/62
--- NOTE | 2020-10-02 16:03 | NUR ---
PT REPORTS RELIEF AFTER MEDICATIONS, NOW 5/10 PAIN.
== END 2020-10-02 16:29 | disposition home or self-care (01) ==
LOC: ED 16:10
DX: M54.16 Radiculopathy, lumbar region (principal); M54.5 Low back pain; M47.816 Spondylosis without myelopathy or radiculopathy, lumbar region
CPT/HCPCS: 96372; 99283; J1170; J7512

== ENCOUNTER 2020-10-29 10:49 | Emergency (ER) | payer OTHER ==
[~2020-10-29] VITALS: Ht 175.3 cm; Wt 125.0 kg
--- NOTE | 2020-10-29 10:59 | NUR ---
PT BIB [facility] FROM HOME FOR LOWER BACK PAIN. PT ABLE TO AMBULATE DOWN THE STAIRS TO AMBULANCE. LOWER BACK PAIN [id number]. HISTORY OF SI[place] AND BACK PAIN. PT CHANGED INTO GOWN, MONITORS IN PLACE. AT
[2020-10-29] MEDS ORDERED: HYDROcodone/APAP 5/325 TABLET ONE (11:18)
--- NOTE | 2020-10-29 11:18 | NUR ---
pt ambulated to br
--- NOTE | 2020-10-29 11:28 | NUR ---
pt to radiology
[2020-10-29] MEDS ORDERED: HYDROcodone/APAP 5/325 TABLET PO ONE (11:30)
[2020-10-29 11:38] LABS: MICROSCOPIC INDICATED
[2020-10-29 11:53] VITALS: BP 141/88
--- NOTE | 2020-10-29 11:55 | NUR ---
PT SITTING ON GURNEY, ON THE PHONE, WATCHING TV. NADN/VSS. CALL LIGHT WITHIN REACH. NO NEEDS AT THIS TIME
[2020-10-29 12:03] LABS: BASOPHILS % (AUTO) 1 % (0-1); EOSINOPHILS % (AUTO) 2 % (1-7); LYMPHOCYTES % (AUTO) 19 % (22-44); MEAN CORPUSCULAR HEMOGLOBIN 25.7 pg (27.0-34.8); MEAN CORPUSCULAR HGB CONC 32.4 g/dL (32.4-35.8); MEAN PLATELET VOLUME 6.9 fL (7.4-10.4); MONOCYTES % (AUTO) 4 % (2-9); NEUTROPHILS % (AUTO) 74 % (42-75); PLATELET COUNT 456 x10^3/uL (130-400); RED BLOOD COUNT 4.76 x10^6/uL (3.82-5.3)
[2020-10-29 12:07] LABS: MD NO
[2020-10-29 12:14] LABS: ALBUMIN 3.2 g/dL (3.4-5.0); ANION GAP 6 mmol/L (5-15); CALCIUM 9.1 mg/dL (8.5-10.1); CHLORIDE 103 mmol/L (98-107)
--- NOTE | 2020-10-29 12:16 | NUR ---
Patient given discharge instructions and they have confirmed that they understand the instructions. Patient ambulatory with steady gait.
== END 2020-10-29 12:17 | disposition home or self-care (01) ==
LOC: ED 11:20
DX: M54.41 Lumbago with sciatica, right side (principal); Z90.710 Acquired absence of both cervix and uterus; Z88.0 Allergy status to penicillin; Z88.6 Allergy status to analgesic agent
CPT/HCPCS: 36415; 72110; 80048; 81001; 82040; 85025; 87086; 99284

== ENCOUNTER → 2020-11-28 | Outpatient (CLI) | payer OTHER | END | disposition home or self-care (01) | LOC: RAD 10:30 | PROVIDERS: ATTEND Orthopaedic Surgery | DX: M51.16 Intervertebral disc disorders with radiculopathy, lumbar region (principal) | CPT/HCPCS: 72148 ==